=== PATIENT | female | born 2000 | race Caucasian/White ===

== ENCOUNTER 2022-08-05 11:22 | Emergency (ER) | payer OTHER, SELFPAY ==
[2022-08-05 11:35] VITALS: BP 127/82; PULSE 78; RESP 18; TEMP 36.6; O2SAT 99
--- NOTE | 2022-08-05 11:36 | ED.GENADULT ---
HPI - General Adult General Chief complaint: Nausea/Vomiting/Diarrhea Stated complaint: D/N/V Blood in vomit Time Seen by Provider: 08/05/22 11:28 Source: patient Mode of arrival: Ambulatory Limitations: no limitations History of Present Illness HPI narrative: Otherwise healthy 22-year-old female who last evening started to have multiple episodes of diarrhea and this morning had vomiting. No urinary symptoms. No vaginal bleeding. She now has generalized abdominal tenderness. She states that when she vomited this morning she had the taste of blood in the vomit him when she called the nurse advice line the told her to come in to be evaluated. No chest pain. No shortness of breath. No fevers. 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 No recent travel. No recent antibiotics. Related Data Previous Rx's Medication Instructions Recorded ondansetron 4 mg disintegrating 4 mg PO Q6H PRN nausea and 08/05/22 tablet vomiting #10 tabs Allergies Allergy/AdvReac Type Severity Reaction Status Date / Time No Known Drug Allergies Allergy Verified 08/05/22 11:37 Review of Systems Constitutional Constitutional: Reports system reviewed and no additional complaints, except as documented Cardiovascular Cardiovascular: Reports system reviewed and no additional complaints, except as documented Respiratory Respiratory: Reports system reviewed and no additional complaints, except as documented Gastrointestinal Gastrointestinal: Reports system reviewed and no additional complaints, except as documented Genitourinary Genitourinary: Reports system reviewed and no additional complaints, except as documented Integumentary/Breasts Skin/Breast: Reports system reviewed and no additional complaints, except as documented Hematologic/Lymphatic On Anticoagulants: No Patient History Medical History Healthy adult Social History lives independently: Yes Smoking Status: Never smoker Exam Initial Vital Signs Initial Vital Signs: Vital Signs Temperature 97.9 F 08/05/22 11:35 Pulse Rate 78 08/05/22 11:35 Respiratory Rate 18 08/05/22 11:35 Blood Pressure 127/82 08/05/22 11:35 Pulse Oximetry 99 08/05/22 11:35 Oxygen Delivery Method 08/05/22 11:35 Const General: cooperative and comfortable HENMT Head: normal to inspection and normocephalic Resp Effort & Inspection: normal respiratory effort Cardio Rate: regular rate GI Inspection: normal to inspection Palpation: soft, No firm, No guarding and tender (Minimal diffuse tenderness) Back/Spine/Pelvis Back: No CVA tenderness Skin General: no rashes or lesions noted Neuro General: patient alert, patient awake and moves all extremities Extrem General: normal to inspection Psych Appearance: grossly normal Course Vital Signs Vital signs: Vital Signs - 8 hr 08/05/22 11:35 Temperature 97.9 F Pulse Rate 78 Respiratory Rate 18 Blood Pressure 127/82 Pulse Oximetry 99 Oxygen Delivery Method Room Air Medical Decision Making Lab Data Labs: Point of Care Testing Test Results Negative Urine Dip Bedside Urine Glucose Negative Bedside Urine Bilirubin - Negative Bedside Urine Ketone - Negative Urine Specific [place] 1.000 Bedside Urine Occult Blood - Negative Bedside Urine pH 6.5 Bedside Urine Protein - Negative Bedside Urine Urobilinogen - Negative Bedside Urine Nitrite - Negative Bedside Urine Leukocytes - Negative Esterase Point of care testing: Point of Care Testing Test Results Negative Urine Dip Bedside Urine Glucose Negative Bedside Urine Bilirubin - Negative Bedside Urine Ketone - Negative Urine Specific [place] 1.000 Bedside Urine Occult Blood - Negative Bedside Urine pH 6.5 Bedside Urine Protein - Negative Bedside Urine Urobilinogen - Negative Bedside Urine Nitrite - Negative Bedside Urine Leukocytes - Negative Esterase MDM Narrative Medical decision making narrative: Benign abdominal exam. Urine is negative. No indication for antibiotics. No indication for radiologic studies. Provided reassurance to the patient. Was sent home with nausea medications. She expressed understanding and agreement. Discharge Plan Departure Patient Disposition: Home Clinical Impression: Nausea, vomiting, and diarrhea Instructions: Diarrhea, Nausea and Vomiting-Adult Activity Restrictions/Additional Instructions: I do recommend that you increase your fluid intake. I would suspect that your symptoms are going to improve over the next 24-48 hours. Contact your medical department for follow-up. Return to the emergency department for any new or worsening symptoms. Prescriptions: New ondansetron 4 mg tablet,disintegrating 4 mg PO Q6H PRN (Reason: nausea and vomiting) Qty: 10 0RF Referrals: [facility] [Primary Care Provider] - Stand Alone Forms: Work Release Note
[2022-08-05 12:35] VITALS: BP 110/71; PULSE 68; RESP 16; O2SAT 100
== END 2022-08-05 12:37 | disposition home or self-care (01) ==
PROVIDERS: Emergency Provider Emergency Medicine
DX: R11.2 Nausea with vomiting, unspecified (principal); R19.7 Diarrhea, unspecified; R10.84 Generalized abdominal pain
CPT/HCPCS: 81003; 81025; 99282